=== PATIENT | female | born 1970 | race Caucasian/White ===

== ENCOUNTER → 2018-12-08 | Outpatient (REF) ==
--- NOTE | 2018-12-08 21:50 | REP ---
Clinical: Pain and disability Technique: AP, lateral, and coned-down views. Findings: Alignment and lordosis maintained. Mild multilevel degenerative changes include hypertrophic facet changes and possible chronic L5 spondylolysis along with minimal L5-S1 disc space narrowing. No acute fracture / compression injury or subluxation. Impression: Mild multilevel degenerative changes. Electronically Signed by Emil Mckeon MD 12/08/2018 09:41 P
== END ==
LOC: M SMT 10:20
PROVIDERS: ATTEND Internal Medicine
DX: Z02.71 Encounter for disability determination (principal)

== ENCOUNTER → 2022-07-16 | Outpatient (REF) | LOC: M PLAIMG 14:07 | PROVIDERS: ATTEND Internal Medicine | DX: R52 Pain, unspecified (principal) ==